=== PATIENT | male | born 1975 | race Caucasian/White ===

== ENCOUNTER 2020-01-02 16:06 | Emergency (ER) | payer MEDICAID, OTHER, SELFPAY ==
[~2020-01-02] VITALS: Ht 195.6 cm; Wt 132.0 kg
[2020-01-02 16:23] VITALS: BP 145/95
--- NOTE | 2020-01-02 16:38 | NUR ---
TO ROOM FROM LOBBY
[2020-01-02] MEDS ORDERED: AZITHROMYCIN 500 MG TABLET ONE (16:44)
[2020-01-02] MEDS ORDERED: CEFTRIAXONE 250 MG ONE (16:44)
[2020-01-02] MEDS ORDERED: LIDOCAINE-MPF 1%, 2ML ONE (16:44)
--- NOTE | 2020-01-02 16:57 | NUR ---
MEDICATED PER EMAR. TO WATCH UNTIL 520P HX OF CILLIN ALLERGY
[2020-01-02] MEDS ORDERED: AZITHROMYCIN 500 MG TABLET PO ONE (17:00)
[2020-01-02] MEDS ORDERED: CEFTRIAXONE 250 MG IM ONE (17:00)
[2020-01-02 17:15] LABS: CULTURE INDICATED? YES; MICROSCOPIC INDICATED
--- NOTE | 2020-01-02 17:26 | NUR ---
NO SYMPTOMS NOTED. DISCHARGED HOME. REVIEWED SEXUAL/MEDICAL POC
== END 2020-01-02 17:27 | disposition home or self-care (01) ==
LOC: ED 17:10
DX: A64 Unspecified sexually transmitted disease (principal); N34.1 Nonspecific urethritis
CPT/HCPCS: 81001; 87086; 87491; 87591; 96372; 99283; J0696

== ENCOUNTER 2020-01-16 00:07 | Emergency (ER) | payer MEDICAID ==
[~2020-01-16] VITALS: Ht 195.6 cm; Wt 132.9 kg
[2020-01-16 00:10] VITALS: BP 167/93
--- NOTE | 2020-01-16 00:19 | NUR ---
ERP AT BEDSIDE TO ASSES PT
[2020-01-16] MEDS ORDERED: AZITHROMYCIN 250 MG TABLET ONE (00:22)
[2020-01-16] MEDS ORDERED: CEFTRIAXONE 250 MG ONE (00:22)
[2020-01-16] MEDS ORDERED: AZITHROMYCIN 500 MG TABLET PO ONE (00:30)
[2020-01-16] MEDS ORDERED: CEFTRIAXONE 250 MG IM ONE (00:30)
--- NOTE | 2020-01-16 00:33 | NUR ---
pt medicated per mar
== END 2020-01-16 00:39 | disposition home or self-care (01) ==
LOC: ED 00:20
DX: A56.8 Sexually transmitted chlamydial infection of other sites (principal); Z20.2 Contact with and (suspected) exposure to infections with a predominantly sexual mode of transmission
CPT/HCPCS: 96372; 99283; J0696

== ENCOUNTER 2020-06-08 12:14 | Emergency (ER) | payer MEDICAID ==
[~2020-06-08] VITALS: Ht 193 cm; Wt 120.0 kg
[2020-06-08 12:21] VITALS: BP 175/98
== END 2020-06-08 12:37 | disposition home or self-care (01) ==
LOC: ED 12:26
DX: B86 Scabies (principal); I10 Essential (primary) hypertension
CPT/HCPCS: 99283

== ENCOUNTER 2020-12-04 20:03 | Emergency (ER) | payer MEDICAID ==
[~2020-12-04] VITALS: Ht 195.6 cm; Wt 129.7 kg
--- NOTE | 2020-12-04 20:48 | NUR ---
CALL LIGHT WITHIN REACH. AWAITING ERP TO SEE. PT REPORTS OF BLISTER TO [facility] "COUPLE DAYS AGO" WITH DRAINAGE AND REDNESS TODAY. REDNESS EXTENDING TO KNEE AND AROUND WOUND. WOUND APPROX 50 CENT PIECE SIZE, WHITE TO CENTER WITH PURULENT DRAINAGE. UNKNOWN DATE OF LAST TETANUS.
--- NOTE | 2020-12-04 21:08 | NUR ---
REPORT FROM YEIMY, TRANSFER OF CARE AT THIS TIME.
--- NOTE | 2020-12-04 21:09 | NUR ---
ERP AT BEDSIDE FOR ASSESSMENT.
--- NOTE | 2020-12-04 21:10 | NUR ---
ERP IN TO SEE. REPORT TO KAITLYN BARRON, TRANSFER OF CARE AT THIS TIME.
[2020-12-04] MEDS ORDERED: LIDOCAINE-MPF 1%, 5ML ONE (21:33)
--- NOTE | 2020-12-04 22:20 | NUR ---
DRESSING APPLIED PER DR WHITE, PT TOLERATED WELL. EDUCATED ON FURTHER WOUND CARE AT HOME AND WHEN TO RETURN TO ED.
[2020-12-04 22:24] VITALS: BP 136/88
--- NOTE | 2020-12-04 22:25 | NUR ---
Patient/Caregiver given discharge instructions and they have confirmed that they understand the instructions. Patient ambulatory with steady gait.
== END 2020-12-04 22:38 | disposition home or self-care (01) ==
LOC: ED 20:57
DX: L02.416 Cutaneous abscess of left lower limb (principal); I10 Essential (primary) hypertension
CPT/HCPCS: 10060; 99283

== ENCOUNTER 2020-12-07 07:15 | Emergency (ER) | payer MEDICAID ==
[~2020-12-07] VITALS: Ht 195.6 cm; Wt 127.2 kg
[2020-12-07 08:35] LABS: BASOPHILS % (AUTO) 0 % (0-1); EOSINOPHILS % (AUTO) 4 % (1-7); LYMPHOCYTES % (AUTO) 8 % (22-44); MEAN CORPUSCULAR HEMOGLOBIN 31.1 pg (27.5-34.5); MEAN PLATELET VOLUME 7.6 fL (7.4-10.4); MONOCYTES % (AUTO) 9 % (2-9); NEUTROPHILS % (AUTO) 79 % (42-75); PLATELET COUNT 448 x10^3/uL (130-400); RED BLOOD COUNT 4.78 x10^6/uL (4.38-5.82); RED CELL DISTRIBUTION WIDTH 12.6 % (9.4-14.8)
[2020-12-07 08:39] LABS: ALBUMIN 3.7 g/dL (3.4-5.0); ANION GAP 3 mmol/L (5-15); CALCIUM 9.2 mg/dL (8.5-10.1); CHLORIDE 106 mmol/L (98-107); CREATININE 1.39 mg/dL (0.7-1.3)
[2020-12-07 08:40] LABS: MD NO
--- NOTE | 2020-12-07 08:44 | NUR ---
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
--- NOTE | 2020-12-07 09:23 | NUR ---
PT RESTING ON [facility]. CELLULITIS OF LEFT LOWER LEG. QUARTER SIZE SCAB, INCREASED REDNESS OVER LEG. PT DENIES INJURY OR BITE, NOT SURE WHAT CAUSED REDNESS OR SCAB. VSS
[2020-12-07 09:33] VITALS: BP 143/89
--- NOTE | 2020-12-07 09:59 | NUR ---
outlined cellulitis w marker. to get us then dc
--- NOTE | 2020-12-07 10:28 | NUR ---
US AT BEDSIDE.
--- NOTE | 2020-12-07 10:54 | NUR ---
Patient/Caregiver given discharge instructions and they have confirmed that they understand the instructions. Patient ambulatory with steady gait.
== END 2020-12-07 11:07 | disposition home or self-care (01) ==
LOC: ED 09:02
DX: L03.116 Cellulitis of left lower limb (principal); N28.9 Disorder of kidney and ureter, unspecified; R73.9 Hyperglycemia, unspecified; I10 Essential (primary) hypertension; Z88.0 Allergy status to penicillin; Z79.899 Other long term (current) drug therapy
CPT/HCPCS: 36415; 80048; 82040; 83605; 85025; 87040; 99284

== ENCOUNTER 2021-02-22 15:47 | Emergency (ER) | payer MEDICAID ==
[~2021-02-22] VITALS: Ht 195.6 cm; Wt 130.7 kg
[2021-02-22 15:56] VITALS: BP 143/88
[2021-02-22] MEDS ORDERED: DEXAMETHASONE 4 MG/ML, 1ML PO ONE (16:00)
[2021-02-22] MEDS ORDERED: DEXAMETHASONE 4 MG/ML, 1ML ONE (16:17)
--- NOTE | 2021-02-22 16:17 | NUR ---
discharged from [facility] after review of poc
== END 2021-02-22 16:18 | disposition home or self-care (01) ==
LOC: ED 15:59
DX: J02.0 Streptococcal pharyngitis (principal); I10 Essential (primary) hypertension; F17.210 Nicotine dependence, cigarettes, uncomplicated
CPT/HCPCS: 99283; 99406; J1100

== ENCOUNTER 2021-02-24 18:48 | Emergency (ER) | payer MEDICAID ==
[~2021-02-24] VITALS: Ht 195.6 cm; Wt 131.0 kg
--- NOTE | 2021-02-24 20:55 | NUR ---
PT PRESENTS TO ED WITH SORE THOART AND BODY ACHES. PT WAS SEEN A FEW DAYS AGO FOR STREP THROAT BUT IS NOT FEELING ANY BETTER. PT IN GOWN, ON GURNEY AND PLACED ON CONTINUOUS MONITORING.
[2021-02-24] MEDS ORDERED: DEXAMETHASONE 4 MG/ML, 1ML ONE (21:19)
[2021-02-24] MEDS ORDERED: ACETAMINOPHEN 500 MG TABLET ONE (21:19)
[2021-02-24] MEDS ORDERED: SODIUM CHLORIDE FLUSH 10ML SYR IVF ONE (21:30)
[2021-02-24] MEDS ORDERED: ACETAMINOPHEN 500 MG TABLET PO ONE (21:30)
[2021-02-24] MEDS ORDERED: DEXAMETHASONE 4 MG/ML, 1ML IVPush ONE (21:30)
[2021-02-24] MEDS ORDERED: SODIUM CHLORIDE 0.9% 1,000ML IVBOLUS ONE (21:30)
--- NOTE | 2021-02-24 21:31 | NUR ---
20 G IV TO RIGHT FOREARM STARTED, IVF RUNNING.
[2021-02-24] MEDS ORDERED: MAALOX/HYOSCYAMINE/LIDOCAINE 45 ML BTL ONE (21:34)
[2021-02-24] MEDS ORDERED: MAALOX/HYOSCYAMINE/LIDOCAINE 45 ML BTL PO ONE (22:00)
[2021-02-24 22:22] VITALS: BP 155/83
--- NOTE | 2021-02-24 22:34 | NUR ---
pt resting comfortably on gurney, denies needs at this time.
--- NOTE | 2021-02-24 22:56 | NUR ---
Patient given discharge instructions and they have confirmed that they understand the instructions. Patient ambulatory with steady gait.
== END 2021-02-24 23:15 | disposition home or self-care (01) ==
LOC: ED 22:45
DX: J02.0 Streptococcal pharyngitis (principal); K21.9 Gastro-esophageal reflux disease without esophagitis; R50.9 Fever, unspecified; F17.210 Nicotine dependence, cigarettes, uncomplicated; R00.0 Tachycardia, unspecified; R59.0 Localized enlarged lymph nodes; I10 Essential (primary) hypertension
CPT/HCPCS: 96361; 96374; 99283; 99406; J1100; J7030